=== PATIENT | female | born 1955 | race Caucasian/White ===

== ENCOUNTER 2022-10-06 10:51 | Outpatient (CLI) | payer MEDICARE, SELFPAY ==
--- NOTE | ~2022-10-06 | XR_ITS ---
XR chest 2V DATE: 10/06/2022 11:19 INDICATION: Left-sided chest pain TECHNIQUE: PA and lateral views COMPARISON: None FINDINGS: Normal heart size. No hilar or mediastinal enlargement. No pulmonary infiltrate or consolid ation, pleural effusion or pulmonary vascular congestion or pneumothorax. IMPRESSION: No active cardiopulmonary disease Reviewed, dictated and finalized at location B.
--- NOTE | 2022-10-06 11:26 | ECG_ITS ---
Measurements Intervals [place] Rate: 66 P: 33 MS: 125 QRS: -20 QRSD: 108 T: 56 QT: 401 QTc: 422 Interpretive Statements SINUS RHYTHM BASELINE ARTIFACT- III, AVL, AVF NORMAL ECG NO PREVIOUS ECG AVAILABLE FOR COMPARISON Electronically Signed On 10-06-2022 12:53:37 CDT by Fili De Leon D.O.
== END 2022-10-06 10:52 | disposition home or self-care (01) ==
PROVIDERS: PCP Family Medicine; Visit Provider Physician Assistant Medical
DX: R07.89 Other chest pain (principal)
CPT/HCPCS: 71046; 93005

== ENCOUNTER 2022-12-10 09:03 | Outpatient (CLI) | payer MEDICARE, SELFPAY ==
--- NOTE | 2022-12-10 11:00 | NEURO_ITS ---
Impression: # Complains of left upper extremity discomfort and numbness. # Bilateral sensory more than motor Carpal Tunnel Syndrome. # Bilateral ulnar neuropathy; left localizing around the elbow and right non- localizing. # Minimal changes on needle/EMG exam. Nerve Conduction Studies Anti Sensory Summary Table Stim Site NR Peak (ms) P-T Amp (?V) Site1 Site2 Delta-P (ms) Dist (cm) Twin (m/s) Left Median Anti Sensory (2-3nd Digit) Wrist 4.2 52.7 Wrist 2-3nd Digit 4.2 14.0 33 Wrist 4.0 66.0 Wrist 2-3nd Digit 4.2 14.0 33 Right Median Anti Sensory (2-3nd Digit) Wrist 4.0 48.7 Wrist 2-3nd Digit 4.0 14.0 35 Wrist 4.0 67.4 Wrist 2-3nd Digit 4.0 14.0 35 Left Radial Anti Sensory (Base 1st Digit) Wrist 2.8 11.4 Wrist Base 1st Digit 2.8 0.0 Right Radial Anti Sensory (Base 1st Digit) Wrist 2.1 7.5 Wrist Base 1st Digit 2.1 0.0 Left Ulnar Anti Sensory (5th Digit) Wrist 3.3 47.0 Wrist 5th Digit 3.3 14.0 42 Right Ulnar Anti Sensory (5th Digit) Wrist 2.4 42.5 Wrist 5th Digit 2.4 14.0 58 Motor Summary Table Stim Site NR Onset (ms) O-P Amp (mV) Site1 Site2 Delta-0 (ms) Dist (cm) Twin (m/s) Left Median Motor (Abd Poll Brev) Wrist 3.8 6.9 Elbow Wrist 5.0 28.0 56 Elbow 8.8 6.5 Right Median Motor (Abd Poll Brev) Wrist 3.8 8.2 Elbow Wrist 5.0 27.0 54 Elbow 8.8 7.7 Left Ulnar Motor (Abd Dig Minimi) Wrist 2.7 7.8 A Elbow Wrist 6.0 28.0 47 A Elbow 8.7 7.0 B Elbow Wrist 3.6 19.0 53 B Elbow 6.3 5.1 Right Ulnar Motor (Abd Dig Minimi) Wrist 2.7 6.0 A Elbow Wrist 6.0 28.0 47 A Elbow 8.7 5.2 B Elbow Wrist 4.2 18.0 43 B Elbow 6.9 5.4 F Wave Studies NR F-Lat (ms) L-R F-Lat (ms) Left Median (Mrkrs) (Abd Poll Brev) 29.36 0.00 Right Median (Mrkrs) (Abd Poll Brev) 29.36 0.00 Left Ulnar (Mrkrs) (Abd Dig Min) 30.70 0.68 Right Ulnar (Mrkrs) (Abd Dig Min) 30.02 0.68 EMG Side Muscle Nerve Root Ins Act Fibs Amp Dur Recrt Comment Right 1stDorInt Ulnar C8-T1 Nml Nml Nml >12ms Reduced Right Ext Indicis Radial (Post Int) C7-8 Nml Nml Nml Nml Nml Right Ext Digitorum Radial (Post Int) C7-8 Nml Nml Nml Nml Nml Right BrachioRad Radial C5-6 Nml Nml Nml Nml Nml Right PronatorTeres Median C6-7 Nml Nml Nml Nml Nml Right Abd Poll Brev Median C8-T1 Nml Nml Nml >12ms Reduced Left 1stDorInt Ulnar C8-T1 Nml Nml Nml Nml Nml Left Ext Indicis Radial (Post Int) C7-8 Nml Nml Nml Nml Nml Left Ext Digitorum Radial (Post Int) C7-8 Nml Nml Nml Nml Nml Left BrachioRad Radial C5-6 Nml Nml Nml Nml Nml Left PronatorTeres Median C6-7 Nml Nml Nml Nml Nml Left Abd Poll Brev Median C8-T1 Nml Nml Nml >12ms Reduced Right ABD Dig Min Ulnar C8-T1 Nml Nml Nml Nml Nml Left ABD Dig Min Ulnar C8-T1 Nml Nml Nml Nml Nml MTDD
== END 2022-12-10 09:04 | disposition home or self-care (01) ==
PROVIDERS: PCP Family Medicine; Visit Provider Family Medicine
DX: R20.0 Anesthesia of skin (principal); G56.03 Carpal tunnel syndrome, bilateral upper limbs; G56.23 Lesion of ulnar nerve, bilateral upper limbs
CPT/HCPCS: 95886; 95911

== ENCOUNTER 2025-06-22 12:16 | Outpatient (CLI) | payer MEDICARE, SELFPAY ==
[2025-06-22 14:04] LABS: Hematocrit 39.0 % (37.0-47.0); Hemoglobin 12.9 g/dL (12.0-15.0); Immature Granulocyte Percent A 0.2 % (0-0.5); Lymphocytes Absolute Auto 1.66 K/mm3 (0.9-3.2); Mean Corpuscular HGB Conc 33.1 g/dl (32-36); Mean Corpuscular Hemoglobin 30.2 pg (26-34); Mean Corpuscular Volume 91.3 fl (80-100); Nucleated Red Blood Cells Absolute Auto 0.000 K/mm3 (0.0-0.012); Nucleated Red Blood Cells Perc 0.0 % (0.0-0.2); Platelet Count Result 251 k/mm3 (150-375); Red Blood Count 4.27 M/mm3 (4.2-5.4); White Blood Count 5.6 K/mm3 (4.5-10.0)
[2025-06-22 15:07] LABS: Vitamin B12 303.0 pg/mL (239-931)
[2025-06-23 16:08] LABS: ANA by IFA Rfx Titer/Pattern Positive (.)
== END 2025-06-22 12:17 | disposition home or self-care (01) ==
PROVIDERS: PCP Family Medicine
DX: R43.8 Other disturbances of smell and taste (principal); R53.83 Other fatigue
CPT/HCPCS: 36415; 82607; 85025; 86038

== ENCOUNTER 2025-06-29 08:21 | Outpatient (CLI) | payer MEDICARE, SELFPAY ==
--- OUTSIDE RECORDS SUMMARY | 2025-06-29 08:32 | XMS_ITS | Encounter Summary ---
Author Organization [facility] Address [address] [place] [address] Care Team Providers Care Boat Canvas Maker Installer Name Role Phone Ivanna Wagner MD Primary Care Provider [phone] Encounter Details Date Type Department Care Team (Late st Contact Info) Description 01/02/[address] 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 Gender Identity Not on file Sexual Orientation Not on file documented as of this encounter Plan of Treatment Upcoming Encounters Date Type Department Care Team (Late st Contact Info) Description 09/19/2025 10:15 AM CDT Office Visit [facility] [place] [address] [place] [address] Vanessa Albright MD [address] [place] [address] documented as of this encounter Visit Diagnoses Not on filedocumented in this encounter Care Teams Boat Canvas Maker Installer Relationship Specialty Start Date End Date Ivanna Wagner MD [address] [place] [address] PCP - General Family Practice 11/17/23 documented as of this encounter
--- OUTSIDE RECORDS SUMMARY | 2025-06-29 08:32 | XMS_ITS | Encounter Summary ---
Author Organization [facility] Address 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 Gender Identity Not on file Sexual Orientation Not on file documented as of this encounter Plan of Treatment Upcoming Encounters Date Type Department Care Team (Late st Contact Info) Description 09/19/2025 10:15 AM CDT Office Visit [facility] Medical [place] [address] [place] [address] Vanessa Albright MD [address] [place] [address] documented as of this encounter Procedures Procedure Name Priority Date/Time Associated Diagnosis Comments T4 TOTAL Routine 09/09/2007 3:00 AM TAILINGS WORKER CBC WITH DIFFERENTIAL Routine 09/09/2007 3:00 AM TAILINGS WORKER TSH Routine 09/09/2007 3:00 AM TAILINGS WORKER IRON LEVEL Routine 09/09/2007 3:00 AM TAILINGS WORKER BASIC METABOLIC PANEL Routine 09/09/2007 3:00 AM TAILINGS WORKER documented in this encounter Results * TSH (09/09/2007 3:00 AM TAILINGS WORKER) Pathologist [facility] TSH 1.61 mIU/L [facility] Comment: REFERENCE RANGE: > OR = 20 YEARS: 0.40-4.50 RANGES FIRST TRIMESTER 0.20-4.70 SECOND TRIMESTER 0.30-4.10 THIRD TRIMESTER 0.40-2.70 Test Performed at: [place] [address] OBDULIO GRANT MD Narrative [facility] - 09/09/2007 3:00 AM TAILINGS WORKER Ordered by JULIANNE DAVIS Historical Provider CHEMISTRY ORDERABLES Final R esult Performing Organization Address City/[facility] Co de Phone Number [address] [address] * T4 TOTAL (09/09/2007 3:00 AM TAILINGS WORKER) [facility] T4 TOTAL 10.3 4.5 - 12.5 mcg/dL [facility] Comment: Test Performed at: [facility] [employer] [address] OBDULIO GRANT MD [facility] - 09/09/2007 3:00 AM TAILINGS WORKER Ordered by JULIANNE DAVIS Historical Provider CHEMISTRY ORDERABLES Final R esult Performing Organization Address City/[facility] Co de Phone Number [address] [address] * CBC WITH DIFFERENTIAL (09/09/2007 3:00 AM TAILINGS WORKER) Pathologist [facility] WBC 8.7 3.8 - 10.8 Thousand/ uL [facility] RBC 4.87 3.80 - 5.10 Million/u L [facility] HEMOGLOBIN 14.2 11.7 - 15.5 g/dL [facility] HEMATOCRIT 42.2 35.0 - 45.0 % [facility] MCV 86.5 80.0 - 100.0 fL [facility] MCH 29.1 27.0 - 33.0 pg [facility]. [facility] MCHC 33.7 32.0 - 36.0 g/dL [facility] RDW 14.6 11.0 - 15.0 % [facility] PLATELETS 296 140 - 400 Thousand/ uL [facility] NEUTROPHIL ABSOLUTE 6,168 1,500 - 7,800 cells/uL [facility] LYMPHOCYTE ABSOLUTE 1,688 850 - 3,900 cells/uL [facility] MONOCYTE ABSOLUTE 592 200 - 950 cells/uL [facility] EOSINOPHIL ABSOLUTE 235 15 - 500 cells/uL [facility]. [facility] BASOPHILS ABSOLUTE 17 0 - 200 cells/uL [facility] NEUTROPHIL 70.9 % [facility] LYMPHOCYTES 19.4 % [facility] MONOCYTE 6.8 % [facility] EOSINOPHILS 2.7 % [facility] BASOPHILS 0.2 % [facility] Comment: Test Performed at: [address] [address] OBDULIO GRANT MD Narrative [facility] - 09/09/2007 3:00 AM TAILINGS WORKER Ordered by JULIANNE DAVIS us Historical Provider HEMATOLOGY ORDERABLES Final Result [address] [address] * BASIC METABOLIC PANEL (09/09/2007 3:00 AM TAILINGS WORKER) GLUCOSE 84 65 - 99 mg/dL [facility] Comment:FASTING REFERENCE IN TERVAL BUN 13 7 - 25 mg/dL [facility] CREATININE 0.88 0.50 - 1.20 mg/dL [facility] GFR >60 > OR = 60 mL/min/1. 73m2 [facility] GFR, >60 > OR = 60 mL/min/1. 73m2 [facility] BUN/CREAT RATIO 15 6 - 22 (calc) [facility]. DIANE SODIUM 142 135 - 146 mmol/L [facility]. DIANE POTASSIUM 4.6 3.5 - 5.3 mmol/L [facility]. DIANE CHLORIDE 104 98 - 110 mmol/L [facility]. DIANE CO2 26 21 - 33 mmol/L [facility]. DIANE CALCIUM 10.1 8.6 - 10.2 mg/dL [facility] Comment: Test Performed at: [address] [address] OBDULIO GRANT MD Narrative [facility] - 09/09/2007 3:00 AM TAILINGS WORKER Ordered by JULIANNE DAVIS Historical Provider CHEMISTRY ORDERABLES Final R esult Performing Organization Address City/[facility]/ZIP Co de Phone Number [address] [address] * IRON (09/09/2007 3:00 AM TAILINGS WORKER) IRON 49 40 - 160 mcg/dL [facility] Comment: Test Performed at: [employer] [address] [address] OBDULIO GRANT MD Narrative [facility] - 09/09/2007 3:00 AM TAILINGS WORKER Ordered by JULIANNE DAVIS Historical Provider CHEMISTRY ORDERABLES Final R esult Performing Organization Address City/[facility]/ZIP Co de Phone Number [address] [address] documented in this encounter Visit Diagnoses Diagnosis Other screening mammogram documented in this encounter Care Teams Business Management Associate Relationship Specialty Start Date End Date Ivanna Wagner MD [address] [place] [address] PCP - General Family Practice 11/17/23 documented as of this encounter
--- OUTSIDE RECORDS SUMMARY | 2025-06-29 08:33 | XMS_ITS | Encounter Summary ---
Author Organization [facility] Address 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 Gender Identity Not on file Sexual Orientation Not on file documented as of this encounter Plan of Treatment Upcoming Encounters Date Type Department Care Team (Late st Contact Info) Description 09/19/2025 10:15 AM CDT Office Visit [facility] Medical [place] [address] [place] [address] Vanessa Albright MD [address] [place] [address] documented as of this encounter Visit Diagnoses Diagnosis Benign neoplasm of skin of trunk, except scrotum- Primary documented in this encounter Care Teams Volunteer Recruitment Coordinator Relationship Specialty Start Date End Date Ivanna Wagner MD [address] [place] [address] PCP - General Family Practice 11/17/23 documented as of this encounter
--- OUTSIDE RECORDS SUMMARY | 2025-06-29 08:33 | XMS_ITS | Encounter Summary ---
Author Organization [facility] Address 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 Gender Identity Not on file Sexual Orientation Not on file documented as of this encounter Plan of Treatment Upcoming Encounters Date Type Department Care Team (Late st Contact Info) Description 09/19/2025 10:15 AM CDT Office Visit [facility] Medical [place] [address] [place] [address] Vanessa Albright MD [address] [place] [address] documented as of this encounter Procedures Procedure Name Priority Date/Time Associated Diagnosis Comments XR MYELOGRAM LUMBAR Routine 05/26/2008 1 1:40 [address] SE[address]ESS HOSIERY KNITTER CT LUMBAR SPINE W CONTRAST Routine 05/26/2008 11:40 AM SEAMLESS HOSIERY KNITTER XR CONSULTATION Routine 05/26/2008 11:00 AM SEAMLESS HOSIERY KNITTER documented in this encounter Results * CT LUMBAR SPINE W CONTRAST (05/26/2008 11:40 AM SEAMLESS HOSIERY KNITTER) Anatomical Region Laterality Modality Spine Other 05/26/2008 11:4 0 AM SEAMLESS HOSIERY KNITTER Narrative 05/27/2008 9:31 AM SEAMLESS HOSIERY KNITTER [facility] [address] [place], [place] [address] Admit Date: 05/26/2008 GLORIA LINDSAY Sex: F Admit Prov: SUHAS MANUEL Date: 1955 Primary Care Prov: JULIANNE DAVIS CMRN: [id number] Room: [facility] SSN: [id number] IMAGING SERVICES Ordering Prov: N/A Accession Number: [id number] Interpretation CT lumbar spine with intrathecal contrast Lumbar myelogram 05/26/2008 Indication: Pain radiating to the left side Technique: Multiple CT axial images were acquired of the lumbar spine following administration of intrathecal contrast. Multiplanar reconstructions were performed. Fluoroscopic and conventional radiographs were also obtained. Findings: Radiographic images demonstrate good opacification of the thecal sac. The vertebral alignment is intact. Vertebral heights and disc spaces are maintained. The distal spinal cord has normal size. The conus of the spinal cord ends at L1-L2. Paraspinal soft tissues are normal. There is very minimal ventral indentation upon the thecal sac due to discs at L2-L3 through L4-L5. These do not exhibit any significant disc bulging. There is no focal disc herniation identified. No mass effect is identified upon the nerve roots. No canal stenosis is seen. Mild degree of facet arthropathy is present at L4-L5 and slightly greater at L5-S1. Impression: No evidence of nerve compromise or stenosis. Mild facet arthropathy at L4- L5 and L5-S1. . Dictated by: PRIYA RODRIGUEZ 05/27/2008 09:21 Electronically signed by: PRIYA RODRIGUEZ 05/27/2008 09:30 Procedure Note Priya Rodriguez - 05/27/2008 [facility] [address] [place], [place] [address] Admit Date: 05/26/2008 GLORIA LINDSAY Sex: F Admit Prov: SUHAS MANUEL Date:1955 Primary Care Prov: JULIANNE DAVIS CMRN: [id number] Room: [facility] SSN: [id number] IMAGING SERVICES Ordering Prov: N/A Interpretation CT lumbar spine with intrathecal contrast Lumbar myelogram 05/26/2008 Indication: Pain radiating to the left side Technique: Multiple CT axial images were acquired of the lumbarspine following administration of intrathecal contrast. Multiplanar reconstructions were performed. Fluoroscopic and conventionalradiographs were also obtained. Findings: Radiographic images demonstrate good opacification of the thecalsac. The vertebral alignment is intact. Vertebral heights and disc spacesare maintained. The distal spinal cord has normal size. The conus of thespinal cord ends at L1-L2. Paraspinal soft tissues are normal. There is very minimal ventral indentation upon the thecal sac due todiscs at L2-L3 through L4-L5. These do not exhibit any significant discbulging. There is no focal disc herniation identified. No mass effect isidentified upon the nerve roots. No canal stenosis is seen. Mild degree offacet arthropathy is present at L4-L5 and slightly greater at L5-S1. Impression: No evidence of nerve compromise or stenosis. Mild facet arthropathyat L4- L5 and L5-S1. . Dictated by: PRIYA RODRIGUEZ 05/27/2008 09:21 Electronically signed by: PRIYA RODRIGUEZ 05/27/2008 09:[address] ORDERABLES Final Result * XR MYELOGRAM LUMBAR (05/26/2008 11:40 AM SEAMLESS HOSIERY KNITTER) Anatomical Region Laterality Modality Spine Other 05/26/2008 11:4 0 AM SEAMLESS HOSIERY KNITTER Narrative 05/27/2008 9:30 AM SEAMLESS HOSIERY KNITTER [facility] [address] [place], [place] [address] Admit Date: 05/26/2008 GLORIA LINDSAY Sex: F Admit Prov: SUHAS MANUEL Date: 1955 Primary Care Prov: JULIANNE DAVIS CMRN: [id number] Room[facility]: [id number] IMAGING SERVICES Ordering Prov: N/A Accession Number: [id number] Interpretation CT lumbar spine with intrathecal contrast Lumbar myelogram 05/26/2008 Indication: Pain radiating to the left side Technique: Multiple CT axial images were acquired of the lumbar spine following administration of intrathecal contrast. Multiplanar reconstructions were performed. Fluoroscopic and conventional radiographs were also obtained. Findings: Radiographic images demonstrate good opacification of the thecal sac. The vertebral alignment is intact. Vertebral heights and disc spaces are maintained. The distal spinal cord has normal size. The conus of the spinal cord ends at L1-L2. Paraspinal soft tissues are normal. There is very minimal ventral indentation upon the thecal sac due to discs at L2-L3 through L4-L5. These do not exhibit any significant disc bulging. There is no focal disc herniation identified. No mass effect is identified upon the nerve roots. No canal stenosis is seen. Mild degree of facet arthropathy is present at L4-L5 and slightly greater at L5-S1. Impression: No evidence of nerve compromise or stenosis. Mild facet arthropathy at L4- L5 and L5-S1. . Dictated by: PRIYA RODRIGUEZ 05/27/2008 09:21 Electronically signed by: PRIYA RODRIGUEZ 05/27/2008 09:30 Procedure Note Provider, Historical - 05/27/2008 [facility] [address] [place], [place] [address] Admit Date: 05/26/2008 GLORIA LINDSAY Sex: F Admit Prov: SUHAS AMNUEL Date:1955 Primary Care Prov: JULIANNE DAVIS CMRN: [id number] Room: [facility]: [id number] IMAGING SERVICES Ordering Prov: N/A Interpretation CT lumbar spine with intrathecal contrast Lumbar myelogram 05/26/2008 Indication: Pain radiating to the left side Technique: Multiple CT axial images were acquired of the lumbarspine following administration of intrathecal contrast. Multiplanar reconstructions were performed. Fluoroscopic and conventionalradiographs were also obtained. Findings: Radiographic images demonstrate good opacification of the thecalsac. The vertebral alignment is intact. Vertebral heights and disc spacesare maintained. The distal spinal cord has normal size. The conus of thespinal cord ends at L1-L2. Paraspinal soft tissues are normal. There is very minimal ventral indentation upon the thecal sac due todiscs at L2-L3 through L4-L5. These do not exhibit any significant discbulging. There is no focal disc herniation identified. No mass effect isidentified upon the nerve roots. No canal stenosis is seen. Mild degree offacet arthropathy is present at L4-L5 and slightly greater at L5-S1. Impression: No evidence of nerve compromise or stenosis. Mild facet arthropathyat L4- L5 and L5-S1. . Dictated by: PRIYA RODRIGUEZ 05/27/2008 09:21 Electronically signed by: PRIYA RODRIGUEZ 05/27/2008 09:30 Suhas Manuel MD DIAGNOSTIC IMAGING ORDERABLES F inal Result * XR CONSULTATION (05/26/2008 11:00 AM SEAMLESS HOSIERY KNITTER) 05/26/2008 11:0 0 AM SEAMLESS HOSIERY KNITTER Narrative INTERFACE SYSTEM - 05/27/2008 9:32 AM SEAMLESS HOSIERY KNITTER [address] [address] Admit Date: 05/26/2008 GLORIA LINDSAY Sex: F Admit Prov: SUHAS MANUEL Date: 1955 Primary Care Prov: JULIANNE DAVIS CMRN: [id number] Room: [facility] SSN: [id number] IMAGING SERVICES Ordering Prov: N/A Accession Number: [id number] Interpretation Fluoroscopic lumbar puncture and lumbar myelogram 05/26/2008 Indication: Left radiculopathy Procedure: The risks and benefits of the procedure were discussed with the patient. Written informed consent was obtained. The patient was placed prone on the fluoroscopy table. The lower back was prepped and draped in sterile fashion. The L2-L3 level was marked using fluoroscopy. Local analgesia was achieved by infiltration of 1% lidocaine with 4.2% sodium bicarbonate. A 27 gauge 8.9 cm needle was advanced in a paraspinal approach into the thecal sac at the L2-L3 level. Roughly 10 cc of Omnipaque-180 contrast was injected. The needle was withdrawn without complication. Fluoroscopic radiographic images were obtained. The patient was sent for CT evaluation. Impression: Successful lumbar puncture with lumbar myelogram. . Dictated by: PRIYA RODRIGUEZ 05/27/2008 09:30 Electronically signed by: PRIYA RODRIGUEZ 05/27/2008 09:31 Procedure Note Priya Rodriguez - 05/27/[address] [address] Admit Date: 05/26/2008 GLORIA LINDSAY Sex: F Admit Prov: SUHAS MANUEL Date:1955 Primary Care Prov: JULIANNE DAVIS CMRN: [id number] Room: [facility] SSN: [id number] IMAGING SERVICES Ordering Prov: N/A Interpretation Fluoroscopic lumbar puncture and lumbar myelogram 05/26/2008 Indication: Left radiculopathy Procedure: The risks and benefits of the procedure were discussedwith the patient. Written informed consent was obtained. The patient wasplaced prone on the fluoroscopy table. The lower back was prepped and drapedin sterile fashion. The L2-L3 level was marked using fluoroscopy.Local analgesia was achieved by infiltration of 1% lidocaine with 4.2%sodium bicarbonate. A 27 gauge 8.9 cm needle was advanced in a paraspinalapproach into the thecal sac at the L2-L3 level. Roughly 10 cc ofOmnipaque-180 contrast was injected. The needle was withdrawn withoutcomplication. Fluoroscopic radiographic images were obtained. The patient was sentfor CT evaluation. Impression: Successful lumbar puncture with lumbar myelogram. . Dictated by: PRIYA RODRIGUEZ 05/27/2008 09:30 Electronically signed by: PRIYA RODRIGUEZ 05/27/2008 09:31 us Suhas Manuel MD DIAGNOSTIC IMAGING ORDERABLES F inal Result INTERFACE SYSTEM Refer to clinic/hospital department documented in this encounter Visit Diagnoses Not on filedocumented in this encounter Care Teams Sports Coordinator Relationship Specialty Start Date End Date Ivanna Wagner MD [address] [place] [address] PCP - General Family Practice 11/17/23 documented as of this encounter
--- OUTSIDE RECORDS SUMMARY | 2025-06-29 08:33 | XMS_ITS | Encounter Summary ---
Author Organization [facility] Address 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 [address] [place] [address] documented as of this encounter Visit Diagnoses Diagnosis Other screening mammogram- Primary documented in this encounter Care Teams Workforce Staffing Advisor Relationship Specialty Start Date End Date Ivanna Wagner MD [address] [place] [address] PCP - General Family Practice 11/17/23 documented as of this encounter
--- OUTSIDE RECORDS SUMMARY | 2025-06-29 08:33 | XMS_ITS | Encounter Summary ---
Author Organization [facility] Address [address] [place] [address] Care Team Providers Care Copper Roller Handler Printing Name Role Phone Ivanna Wagner MD Primary Care Provider [phone] Encounter Details Date Type Department Care Team (Latest Contact Info) Description 08/04/2008 Outpatient Historical HIS IMG-LAB [facility] [place] [address] [place] [address] Other Screening Mammogram Social History Tobacco Use Types Packs/Day Years Used Date Smoking Tobacco: Never Assessed Comments Unknown Sex and Gender Information Value Date Recorded Sex Assigned at Not on file Legal Sex Female 5:26 AM INSURANCE AGENCY SALES MANAGER Gender Identity Not on file Sexual Orientation Not on file documented as of this encounter Plan of Treatment Upcoming Encounters Date Type Department Care Team (Late st Contact Info) Description 09/19/2025 10:15 AM CDT Office Visit [facility] Medical [place] [address] [place] [address] Vanessa Albright MD [address] [facility] [address] [place] [address] documented as of this encounter Procedures Procedure Name Priority Date/Time Associated Diagnosis Comments MAMMO SCREEN BILAT W OR WO CAD Routine 08/04/2008 2:02 PM INSURANCE AGENCY SALES MANAGER documented in this encounter Results * MAMMO DIGITAL SCREEN BILAT (08/04/2008 2:02 PM INSURANCE AGENCY SALES MANAGER) Anatomical Region Laterality Modality Breast Bilateral Other 08/04/2008 2:02 PM INSURANCE AGENCY SALES MANAGER Narrative 08/10/2008 10:23 AM INSURANCE AGENCY SALES MANAGER [place] [address] [address] [place], [place] [address] Admit Date: 08/04/2008 GLORIA LINDSAY Sex: F Admit Prov: LEAH HARRIS Date: 1955 Primary Care Prov: JULIANNE DAVIS CMRN: [id number] [id number] Ordering Prov: LEAH HARRIS Accession Number: [id number] Interpretation BILATERAL SCREENING DIGITAL MAMMOGRAMS WITH COMPUTER ASSISTED DIAGNOSIS, 08/04/2008 Clinical History: Screening mammogram. Comparison mammograms dating back to 2005. Findings: The parenchyma is very dense bilaterally. This lowers the sensitivity of mammography in detecting disease. There is no mass, malignant calcification, lymphadenopathy, architectural distortion or other sign of malignancy. The images were reviewed using the CAD system. Impression: Dense mammary parenchyma. No mammographic evidence of malignancy. BI-RADS Category: 1, negative. Assessment BIRADS: 1-Negative Recommendation: Normal interval follow-up Dictated by: DORON WIGGINS Electronically signed by: DORON WIGGINS 08/10/2008 10:23 Transcribed: 08/10/2008 10:02 DKT Procedure Note Doron Wiggins MD - 08/10/2008 [address] [place], [place] [address] Admit Date: 08/04/2008 GLORIA LINDSAY Sex: F Admit Prov: SANDOVAL LEAH C Date:1955 Primary Care Prov: JULIANNE DAVIS CMRN: [id number] Room: [facility] SSN: [id number] IMAGING SERVICES Ordering Prov: LEAH HARRIS Interpretation BILATERAL SCREENING DIGITAL MAMMOGRAMS WITH COMPUTER ASSISTEDDIAGNOSIS, 08/04/2008 Clinical History: Screening mammogram. Comparison mammograms dating back to 2005. Findings: The parenchyma is very dense bilaterally. This lowers the sensitivity of mammography in detecting disease. There is no mass, malignant calcification, lymphadenopathy, architectural distortion orother sign of malignancy. The images were reviewed using the CAD system. Impression: Dense mammary parenchyma. No mammographic evidence of malignancy. BI-RADS Category: 1, negative. Assessment BIRADS: 1-Negative Recommendation: Normal interval follow-up Dictated by: DORON WIGGINS Electronically signed by: DORON WIGGINS 08/10/2008 10:23 Transcribed: 08/10/2008 10:02 DKT Leah Harris MD MAMMO ORDERABLES Final Result documented in this encounter Visit Diagnoses Diagnosis Other screening mammogram documented in this encounter Care Teams Copper Roller Handler Printing Relationship Specialty Start Date End Date Ivanna Wagner MD [address] [place] [address] PCP - General Family Practice 11/17/23 documented as of this encounter
--- OUTSIDE RECORDS SUMMARY | 2025-06-29 08:33 | XMS_ITS | Encounter Summary ---
Author Organization [facility] Address [address] [place] [address] Care Team Providers Care Tube Rebuilder Name Role Phone Ivanna Wagner MD Primary Care Provider [phone] Encounter Details Date Type Department Care Team (Latest Contact Info) Description 11/11/2001 Outpatient Historical HIS IMG-LAB [facility] [place] [address] [place] [address] SCREENING MAMM-MAILG NEOPL-OTHER (Primary Dx) Social History Tobacco Use Types Packs/Day Years Used Date Smoking Tobacco: Never Assessed Comments Unknown Sex and Gender Information Value Date Recorded Sex Assigned at Not on file Legal Sex Female 5:26 AM MANAGER PARK Gender Identity Not on file Sexual Orientation Not on file documented as of this encounter Plan of Treatment Upcoming Encounters Date Type Department Care Team (Late st Contact Info) Description 09/19/2025 10:15 AM CDT Office Visit [facility] Medical [place] [address] [facility] [address] [place] [address] Vanessa Albright MD [address] [facility] [address] [place] [address] documented as of this encounter Visit Diagnoses Diagnosis Other screening mammogram- Primary documented in this encounter Care Teams Tube Rebuilder Relationship Specialty Start Date End Date Ivanna Wagner MD [address] [place] [id number] PCP - General Family Practice 11/17/23 documented as of this encounter
--- OUTSIDE RECORDS SUMMARY | 2025-06-29 08:33 | XMS_ITS | Encounter Summary ---
Author Organization [facility] Address [address] [place] [address] Care Team Providers Care Medical Dosimetrist Name Role Phone Ivanna Wagner MD Primary Care Provider [phone] Encounter Details Date Type Department Care Team (Late st Contact Info) Description 06/02/2008 Outpatient Historical [facility] Suhas Manuel MD [address] [place] [address] Lumbago Social History Tobacco Use Types Packs/Day Years Used Date Smoking Tobacco: Never Assessed Comments Unknown Sex and Gender Information Value Date Recorded Sex Assigned at Not on file Legal Sex Female 5:26 AM ALUMNI RELATIONS MANAGER Gender Identity Not on file Sexual Orientation Not on file documented as of this encounter Plan of Treatment Upcoming Encounters Date Type Department Care Team (Late st Contact Info) Description 09/19/2025 10:15 AM CDT Office Visit [facility] Medical [place] [address] [place] [address] Vanessa Albright MD [address] [place] [address] [place] [address] documented as of this encounter Procedures Procedure Name Priority Date/Time Associated Diagnosis Comments CT ABDOMEN PELVIS W CONTRAST Routine 06/02/2008 9:28 AM ALUMNI RELATIONS MANAGER POC CREATININE Routine 06/02/2008 9:04 AM ALUMNI RELATIONS MANAGER documented in this encounter Results * CT ABDOMEN PELVIS W CONTRAST (06/02/2008 9:28 AM ALUMNI RELATIONS MANAGER) Anatomical Region Laterality Modality Abdomen Other 06/02/2008 9:28 AM ALUMNI RELATIONS MANAGER Narrative 06/02/2008 10:41 AM ALUMNI RELATIONS MANAGER [facility] [address] [place], [place] [address] Admit Date: 06/02/2008 GLORIA LINDSAY Sex: F Admit Prov: SUHAS MANUEL Date: 1955 Primary Care Prov: JULIANNE DAVIS CMRN: [id number] Room: [facility] SSN: [id number] IMAGING SERVICES Ordering Prov: N/A Accession Number: [id number] Interpretation EXAM: CT OF THE ABDOMEN AND PELVIS WITH INTRAVENOUS AND ORAL CONTRAST, 06/02/2008 History: Abdominal pain. Back pain. Left leg pain. Technique: CT of the abdomen and pelvis is performed with intravenous contrast. Oral contrast was also administered. Spiral imaging is performed from above the diaphragm to below the symphysis pubis. Images are reconstructed in the axial plane at 5 mm. Lung, liver, soft tissue and bone windows are reviewed. Findings: There are multiple hypodensities in the liver. One is seen in the left lobe of the liver and two are seen in the posterior/inferior right lobe of the liver. The largest is in the inferior right lobe of the liver. This lesion measures 4.1 cm in diameter in the transverse plane. The two largest lesions show peripheral nodular enhancement and are consistent with hemangiomas. The small lesion in the left lobe of the liver also suggests some peripheral enhancement consistent with hemangioma. The liver is otherwise unremarkable. The spleen, pancreas, and adrenal glands are unremarkable. There is a hyperdense lesion in the left kidney which measures 1.2 cm in diameter. This lesion, however, measures 48 Hounsfield units in density and cannot be described as a simple cyst on this examination. Further evaluation with MRI is recommended. There is a fat-containing mass in the posterior/inferior pelvis just inferior and lateral to the left sacrum. Fat-containing mass extends into the left buttock between the left gluteus muscles. This mass is entirely of fat density on the current examination, with no significant enhancement or nodularity, and is consistent with a benign lipoma. This lesion, however, produces some mild mass effect on pelvic structures and correlation with patient's symptoms and pain is recommended. This lesion may be producing some mild mass effect on the sciatic nerve as it extends to the sciatic notch and once again correlation with patient's symptoms is recommended. This lesion measures 5.2x2.2 cm on image 73. The uterus and adnexal regions are unremarkable. No bowel obstruction, fluid collection, free fluid, free air, or focal acute inflammatory process is seen. There is no additional finding. Impression: Lesion in the left kidney. This small lesion is hyperdense on this examination and cannot be described as a simple cyst based on this examination. Further evaluation of this lesion with MRI is recommended to better evaluate the characteristics of this lesion in the upper pole of the left kidney. Multiple lesions in the liver as described above. These lesions have initial enhancement characteristics consistent with hemangiomas. These lesions can be confirmed as hemangiomas when the lesion in the left kidney is evaluated with MRI. Large benign-appearing lipoma in the inferior/posterior left pelvis extending to between the gluteus muscles in the left buttock. This produces some mild mass effect on pelvic structures; correlation with symptoms is recommended as this lesion extends into the sciatic notch. No additional finding in the abdomen or pelvis. There is no bowel obstruction or acute inflammatory process. . Dictated by: BEN PYLE 06/02/2008 09:58 Electronically signed by: BEN PYLE 06/02/2008 10:40 Transcribed: 06/02/2008 10:18 DKT Procedure Note Ben Pyle - 06/02/2008 [facility] [address] [place], [place] [address] Admit Date: 06/02/2008 GLORIA LINDSAY Sex: F Admit Prov: SUHAS MANUEL Date:1955 Primary Care Prov: JULIANNE DAVIS CMRN: [id number] Room: [facility]: [id number] IMAGING SERVICES Ordering Prov: N/A Interpretation EXAM: CT OF THE ABDOMEN AND PELVIS WITH INTRAVENOUS AND ORALCONTRAST, 06/02/2008 History: Abdominal pain. Back pain. Left leg pain. Technique: CT of the abdomen and pelvis is performed withintravenous contrast. Oral contrast was also administered. Spiral imaging isperformed from above the diaphragm to below the symphysis pubis. Images are reconstructed in the axial plane at 5 mm. Lung, liver, soft tissueand bone windows are reviewed. Findings: There are multiple hypodensities in the liver. One is seenin the left lobe of the liver and two are seen in the posterior/inferiorright lobe of the liver. The largest is in the inferior right lobe of theliver. This lesion measures 4.1 cm in diameter in the transverse plane. Thetwo largest lesions show peripheral nodular enhancement and areconsistent with hemangiomas. The small lesion in the left lobe of the liver alsosuggests some peripheral enhancement consistent with hemangioma. The liveris otherwise unremarkable. The spleen, pancreas, and adrenal glandsare unremarkable. There is a hyperdense lesion in the left kidney which measures 1.2 cm in diameter. This lesion, however, measures 48Hounsfield units in density and cannot be described as a simple cyst on this examination. Further evaluation with MRI is recommended. There is a fat-containing mass in the posterior/inferior pelvisjust inferior and lateral to the left sacrum. Fat-containing mass extendsinto the left buttock between the left gluteus muscles. This mass isentirely of fat density on the current examination, with no significantenhancement or nodularity, and is consistent with a benign lipoma. This lesion,however, produces some mild mass effect on pelvic structures and correlationwith patient's symptoms and pain is recommended. This lesion may beproducing some mild mass effect on the sciatic nerve as it extends to thesciatic notch and once again correlation with patient's symptoms isrecommended. This lesion measures 5.2x2.2 cm on image 73. The uterus and adnexal regions are unremarkable. No bowelobstruction, fluid collection, free fluid, free air, or focal acute inflammatoryprocess is seen. There is no additional finding. Impression: Lesion in the left kidney. This small lesion is hyperdense on this examination and cannot be described as a simple cyst based on this examination. Further evaluation of this lesion with MRI isrecommended to better evaluate the characteristics of this lesion in the upper poleof the left kidney. Multiple lesions in the liver as described above. These lesionshave initial enhancement characteristics consistent with hemangiomas.These lesions can be confirmed as hemangiomas when the lesion in the leftkidney is evaluated with MRI. Large benign-appearing lipoma in the inferior/posterior left pelvis extending to between the gluteus muscles in the left buttock. Thisproduces some mild mass effect on pelvic structures; correlation with symptomsis recommended as this lesion extends into the sciatic notch. No additional finding in the abdomen or pelvis. There is no bowel obstruction or acute inflammatory process. . Dictated by: BEN PYLE 06/02/2008 09:58 Electronically signed by: BEN PYLE 06/02/2008 10:40 Transcribed: 06/02/2008 10:18 DKT us Suhas Manuel MD CT ORDERABLES Final Result * POC CREATININE (06/02/2008 9:04 AM ALUMNI RELATIONS MANAGER) CREATININE POC 0.7 0.6 - 1.3 mg/dL [facility] GFR >60 >=60 mL/min/1.7 sq meter [facility] GFR, >60 >=60 mL/min/1.7 sq meter [facility] Capillary blood specimen (specimen) 06/02/2008 9:04 AM ALUMNI RELATIONS MANAGER 06/02/2008 9:04 AM ALUMNI RELATIONS MANAGER us Suhas Manuel MD POINT OF CARE TESTING Edited INTERFACE SYSTEM Refer to clinic/hospital department [facility] CLIA# [id number] [address] [facility] [address] [place] [address] documented in this encounter Visit Diagnoses Diagnosis Lumbago documented in this encounter Care Teams Medical Dosimetrist Relationship Specialty Start Date End Date Ivanna Wagner MD [address] [place] [address] PCP - General Family Practice 11/17/23 documented as of this encounter
--- OUTSIDE RECORDS SUMMARY | 2025-06-29 08:33 | XMS_ITS | Encounter Summary ---
Author Organization [facility] Address [address] [place] [address] Care Team Providers Care Clay Dry Press Operator Name Role Phone Ivanna Wagner MD Primary Care Provider [phone] Encounter Details Date Type Department Care Team (Late st Contact Info) Description 12/13/2003 Outpatient Historical [facility] Internal Medicine [address] [phone] Ady Wesley MD [address] [facility] [address] [place] [address] Social History Tobacco Use Types Packs/Day Years Used Date Smoking Tobacco: Never Assessed Comments Unknown Sex and Gender Information Value Date Recorded Sex Assigned at Not on file Legal Sex Female 5:26 AM LOCOMOTIVE CRANE OPERATOR HELPER Gender Identity Not on file Sexual Orientation Not on file documented as of this encounter Plan of Treatment Upcoming Encounters Date Type Department Care Team (Late st Contact Info) Description 09/19/2025 10:15 AM CDT Office Visit [facility] Medical [place] [address] [place] [address] [place] [address] Vanessa Albright MD [address] [place] [address] [place] [address] documented as of this encounter Visit Diagnoses Not on filedocumented in this encounter Care Teams Clay Dry Press Operator Relationship Specialty Start Date End Date Ivanna Wagner MD [address] [place] [address] PCP - General Family Practice 11/17/23 documented as of this encounter
--- OUTSIDE RECORDS SUMMARY | 2025-06-29 08:33 | XMS_ITS | Encounter Summary ---
Author Organization [facility] Address [address] [place] [address] Care Team Providers Care Security Analyst Name Role Phone Ivanna Wagner MD Primary Care Provider [phone] Encounter Details Date Type Department Care Team (Latest Contact Info) Description 07/03/2006 Outpatient Historical HIS IMG-LAB [facility] [place] [address] [place] [address] Other Screening Mammogram (Primary Dx) Social History Tobacco Use Types Packs/Day Years Used Date Smoking Tobacco: Never Assessed Comments Unknown Sex and Gender Information Value Date Recorded Sex Assigned at Not on file Legal Sex Female 5:26 AM BRAKE REPAIRER Gender Identity Not on file Sexual Orientation Not on file documented as of this encounter Plan of Treatment Upcoming Encounters Date Type Department Care Team (Late st Contact Info) Description 09/19/2025 10:15 AM CDT Office Visit [facility] Medical [place] [address] [place] [address] Vanessa Albright MD [address] [place] [address] documented as of this encounter Visit Diagnoses Diagnosis Other screening mammogram- Primary documented in this encounter Care Teams Security Analyst Relationship Specialty Start Date End Date Ivanna Wagner MD [address] [place] [address] PCP - General Family Practice 11/17/23 documented as of this encounter
--- OUTSIDE RECORDS SUMMARY | 2025-06-29 08:33 | XMS_ITS | Encounter Summary ---
Author Organization [facility] Address [address] [place] [address] Care Team Providers Care Accounts Supervisor Name Role Phone Ivanna Wagner MD Primary Care Provider [phone] Encounter Details Date Type Department Care Team (Late st Contact Info) Description 04/13/1998 Outpatient Historical [facility] Internal Medicine [address] [phone] Ady Wesley MD 141 [facility] [address] [place] [address] Social History Tobacco Use Types Packs/Day Years Used Date Smoking Tobacco: Never Assessed Comments Unknown Sex and Gender Information Value Date Recorded Sex Assigned at Not on file Legal Sex Female 5:26 AM TRAIN CREW MEMBER Gender Identity Not on file Sexual Orientation Not on file documented as of this encounter Plan of Treatment Upcoming Encounters Date Type Department Care Team (Late st Contact Info) Description 09/19/2025 10:15 AM CDT Office Visit [facility] Medical [place] [address] [place] [address] [place] [address] Vanessa Albright MD [address] [place] [address] [place] [address] documented as of this encounter Visit Diagnoses Not on filedocumented in this encounter Care Teams Accounts Supervisor Relationship Specialty Start Date End Date Ivanna Wagner MD [address] [place] [address] PCP - General Family Practice 11/17/23 documented as of this encounter
--- OUTSIDE RECORDS SUMMARY | 2025-06-29 08:33 | XMS_ITS | Encounter Summary ---
Author Organization [facility] Address [address] [place] [address] Care Team Providers Care Thermodynamics Professor Name Role Phone Ivanna Wagner MD Primary Care Provider [phone] Encounter Details Date Type Department Care Team (Late st Contact Info) Description 02/17/2001 Outpatient Historical [facility] Internal Medicine [address] [phone] Ady Wesley MD 141 [facility] [address] [place] [address] Social History Tobacco Use Types Packs/Day Years Used Date Smoking Tobacco: Never Assessed Comments Unknown Sex and Gender Information Value Date Recorded Sex Assigned at Not on file Legal Sex Female 5:26 AM SANDWICH WRAPPER Gender Identity Not on file Sexual Orientation Not on file documented as of this encounter Plan of Treatment Upcoming Encounters Date Type Department Care Team (Late st Contact Info) Description 09/19/2025 10:15 AM CDT Office Visit [facility] Medical [place] [address] [place] [address] [place] [address] Vanessa Albright MD [address] [place] [address] [place] [address] documented as of this encounter Visit Diagnoses Not on filedocumented in this encounter Care Teams Thermodynamics Professor Relationship Specialty Start Date End Date Ivanna Wagner MD [address] [place] [address] PCP - General Family Practice 11/17/23 documented as of this encounter
--- OUTSIDE RECORDS SUMMARY | 2025-06-29 08:33 | XMS_ITS | Encounter Summary ---
Author Organization [facility] Address [address] [place] [address] Care Team Providers Care Drug Coordinator Name Role Phone Ivanna Wagner MD Primary Care Provider [phone] Encounter Details Date Type Department Care Team (Late st Contact Info) Description 02/03/2001 Outpatient Historical [facility] ([facility]) Internal Medicine [address] [phone] Ady Wesley MD [address] [facility] [address] [place] [address] Social History Tobacco Use Types Packs/Day Years Used Date Smoking Tobacco: Never Assessed Comments Unknown Sex and Gender Information Value Date Recorded Sex Assigned at Not on file Legal Sex Female 5:26 AM CASH CONTROL SPECIALIST Gender Identity Not on file Sexual Orientation Not on file documented as of this encounter Plan of Treatment Upcoming Encounters Date Type Department Care Team (Late st Contact Info) Description 09/19/2025 10:15 AM CDT Office Visit [facility] Medical [place] [address] [place] [id number] [place] [address] Vanessa Albright MD [address] [place] [id number] [place] [address] documented as of this encounter Visit Diagnoses Not on filedocumented in this encounter Care Teams Drug Coordinator Relationship Specialty Start Date End Date Ivanna Wagner MD [address] [place] [address] PCP - General Family Practice 11/17/23 documented as of this encounter
--- OUTSIDE RECORDS SUMMARY | 2025-06-29 08:33 | XMS_ITS | Encounter Summary ---
Author Organization [facility] Address 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 Gender Identity Not on file Sexual Orientation Not on file documented as of this encounter Plan of Treatment Upcoming Encounters Date Type Department Care Team (Late Contact Info) Description 09/19/2025 10:15 AM CDT Office Visit [facility] [place] [facility] [address] [address] Vanessa Albright MD [address] [address] documented as of this encounter Procedures Procedure Name Priority Date/Time Associated Diagnosis Comments XR FEMUR 2 VW LEFT Stat 02/28/2008 7: 33 PM CDT XR LUMBAR SPINE 2 OR 3 VW Stat 02/28/2008 7:33 PM CDT documented in this encounter Results * XR LUMBAR SPINE 2 OR 3 VW (02/28/2008 7:33 PM CDT) Anatomical Region Laterality Modality Spine Other 02/28/2008 7:33 PM CDT Narrative 02/29/2008 12:21 AM CDT [place] [address] [place], [place] [address] Admit Date: 02/28/2008 KATERINA LINDSAY Sex: F Admit Prov: ER, AUTHORIZED P Date: 1955 Primary Care Prov: JULIANNE DAVIS CMRN: [id number] [id number] [facility] Ordering Prov: N/A Accession Number: [id number] Interpretation LUMBAR SPINE, AP, LATERAL 02/28/2008 History: Back pain. Findings: No fracture, subluxation or abnormal bone production or destruction is identified. The vertebral bodies and intervertebral disc spaces are of normal height. Impression: Normal. . Dictated by: DELVIS DAVILA 02/28/2008 19:52 Electronically signed by: DELVIS DAVILA 02/29/2008 00:20 Transcribed: 02/28/2008 19:54 SJ Procedure Note Delvis Davila MD - 02/29/2008 [address] [address] [place], [place] [address] Admit Date: 02/28/2008 KATERINA LINDSAY Sex: F Admit Prov: ER, AUTHORIZED P Date:1955 Primary Care Prov: JULIANNE DAVIS CMRN: [id number] [facility] N: [id number] IMAGING SERVICES Ordering Prov: N/A Interpretation LUMBAR SPINE, AP, LATERAL 02/28/2008 History: Back pain. Findings: No fracture, subluxation or abnormal bone production or destruction is identified. The vertebral bodies and intervertebraldisc spaces are of normal height. Impression: Normal. . Dictated by: DELVIS DAVILA 02/28/2008 19:52 Electronically signed by: DELVIS DAVILA 02/29/2008 00:20 Transcribed: 02/28/2008 19:54 SJ us Authorized P Er DIAGNOSTIC IMAGING ORDERABLES Fi nal Result * XR FEMUR 2 VW LEFT (02/28/2008 7:33 PM CDT) Anatomical Region Laterality Modality Lower Extremity Other 02/28/2008 7:33 PM CDT Narrative 02/29/2008 12:21 AM CDT [address] [address] Admit Date: 02/28/2008 KATERINA LINDSAY Sex: F Admit Prov: ER, AUTHORIZED P Date: 1955 Primary Care Prov: JULIANNE DAVIS CMRN: [id number] [facility] N: [id number] IMAGING SERVICES Ordering Prov: N/A Accession Number: [id number] Interpretation LEFT FEMUR, 2 VIEWS, 02/28/2008 History: Pain. Findings: The osseous, joint and soft tissue structures are normal. Impression: Normal. . Dictated by: DELVIS DAVILA 02/28/2008 19:52 Electronically signed by: DELVIS DAVILA 02/29/2008 00:20 Transcribed: 02/28/2008 19:53 SJ Procedure Note Delvis Davila MD - 02/29/[address] [address] Admit Date: 02/28/2008 KATERNIA LINDSAY Sex: F Admit Prov: ER, AUTHORIZED P Date:1955 Primary Care Prov: JULIANNE DAVIS CMRN: [id number] Room: ER-A SSN: [id number] IMAGING SERVICES Ordering Prov: N/A Interpretation LEFT FEMUR, 2 VIEWS, 02/28/2008 History: Pain. Findings: The osseous, joint and soft tissue structures are normal. Impression: Normal. . Dictated by: DELVIS DAVILA 02/28/2008 19:52 Electronically signed by: DELVIS DAVILA 02/29/2008 00:20 Transcribed: 02/28/2008 19:53 SJ us Authorized P Er DIAGNOSTIC IMAGING ORDERABLES Fi nal Result documented in this encounter Visit Diagnoses Not on filedocumented in this encounter Care Teams Astronomy Professor Relationship Specialty Start Date End Date Ivanna Wagner MD [address] [place] [address] PCP - General Family Practice 11/17/23 documented as of this encounter
--- OUTSIDE RECORDS SUMMARY | 2025-06-29 08:33 | XMS_ITS | Encounter Summary ---
Author Organization [facility] Address 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 Gender Identity Not on file Sexual Orientation Not on file documented as of this encounter Plan of Treatment Upcoming Encounters Date Type Department Care Team (Late st Contact Info) Description 09/19/2025 10:15 AM CDT Office Visit [facility] Medical [place] [address] [facility] [address] [place] [address] Vanessa Albright MD [address] [facility] [address] [place] [address] documented as of this encounter Visit Diagnoses Diagnosis Other screening mammogram- Primary documented in this encounter Care Teams Polysomnograph Tech Relationship Specialty Start Date End Date Ivanna Wagner MD [address] [place] [id number] PCP - General Family Practice 11/17/23 documented as of this encounter
--- OUTSIDE RECORDS SUMMARY | 2025-06-29 08:33 | XMS_ITS | Encounter Summary ---
Author Organization [facility] Address [address] [place] [address] Care Team Providers Care Catalyst Concentration Operator Name Role Phone Ivanna Wagner MD Primary Care Provider [phone] Encounter Details Date Type Department Care Team (Late st Contact Info) Description 01/03/1998 Outpatient Historical [facility] Internal Medicine [address] [phone] Ady Wesley MD 141 [facility] [address] [place] [address] Social History Tobacco Use Types Packs/Day Years Used Date Smoking Tobacco: Never Assessed Comments Unknown Sex and Gender Information Value Date Recorded Sex Assigned at Not on file 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 Gender Identity Not on file Sexual Orientation Not on file documented as of this encounter Plan of Treatment Upcoming Encounters Date Type Department Care Team (Late st Contact Info) Description 09/19/2025 10:15 AM CDT Office Visit [facility] Medical [place] [address] [place] [address] [place] [address] Vanessa Albright MD [address] [place] [address] [place] [address] documented as of this encounter Visit Diagnoses Not on filedocumented in this encounter Care Teams Catalyst Concentration Operator Relationship Specialty Start Date End Date Ivanna Wagner MD [address] [place] [address] PCP - General Family Practice 11/17/23 documented as of this encounter
--- OUTSIDE RECORDS SUMMARY | 2025-06-29 08:33 | XMS_ITS | Encounter Summary ---
Author Organization [facility] Address [address] [place] [address] Care Team Providers Care Alternative Medicine Practitioner Name Role Phone Ivanna Wagner MD Primary Care Provider [phone] Encounter Details Date Type Department Care Team (Latest Contact Info) Description 11/09/2000 Outpatient Historical [facility] IM[facility] [place] [address] [place] [address] Other screening mammogram (Primary Dx) Social History Tobacco Use Types Packs/Day Years Used Date Smoking Tobacco: Never Assessed Comments Unknown Sex and Gender Information Value Date Recorded Sex Assigned at Not on file Legal Sex Female 5:26 AM PEDIATRICIAN ACTIVE PRACTICE Gender Identity Not on file Sexual Orientation Not on file documented as of this encounter Plan of Treatment Upcoming Encounters Date Type Department Care Team (Late st Contact Info) Description 09/19/2025 10:15 AM CDT Office Visit [facility] Medical [place] [address] [place] [address] [place] [address] Vanessa Albright MD [address] [place] [address] [place] [address] documented as of this encounter Visit Diagnoses Diagnosis Other screening mammogram- Primary documented in this encounter Care Teams Alternative Medicine Practitioner Relationship Specialty Start Date End Date Ivanna Wagner MD [address] [place] [address] PCP - General Family Practice 11/17/23 documented as of this encounter
--- OUTSIDE RECORDS SUMMARY | 2025-06-29 08:33 | XMS_ITS | Clinical Summary ---
Author Organization [facility] Address [address] [place] [address] Care Team Providers Care Flat Cutter Name Role Phone Ivanna Wagner MD Primary Care Provider [phone] Allergies No known active allergies Medications Cholecalciferol, Vitamin D3, 3,000 unit Tablet Take by mouth. Active Active Problems Patient Care Coordination No te Formatting of this note migh t be different from the original. 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 Encounters Date Type Department Care Team Description 05/16/2025 External Device Data [facility] ABSTRACTION Provider, Abstract 05/16/2025 External Device Data [facility] ABSTRACTION Provider, Abstract 05/16/2025 External Device Data [facility] ABSTRACTION Provider, Abstract 05/10/2025 External Device Data [facility] ABSTRACTION Provider, Abstract 05/10/2025 External Device Data [facility] ABSTRACTION Provider, Abstract 05/03/2025 External Device Data [facility] ABSTRACTION Provider, Abstract 05/02/2025 External Device Data [facility] ABSTRACTION Provider, Abstract from Last 3 Months Immunizations Immunization Administration Dates Next Due (ADACEL/BOOSTRIX)(10 YR UP) TDAP VACCINE, 0.5ML, IM 11/04/2021,04/05/2012 (PFIZER)(12 YR UP) COVID-19 VACCINE - EMERGENCY USE AUTHORIZATION, MRNA, [id number](PF) 30 MCG/0.3 ML IM SUSP 11/15/2020,10/25/2020 (PNEUMOVAX 23)(50 YRS UP) PN EUMOCOCCAL POLYSACCHARIDE (PPV23) 0.5 ML, IM 11/04/2021 (SHINGRIX)(50 YRS UP) ZOSTER VACCINE RECOMBINANT, 0.5 ML, IM 04/26/2020,01/30/2020 04/02/2020 INFLUENZA VACCINE QUADRIVALE NT 6 MOS UP PF IM 04/26/2020 Influenza Seasonal Unspecifi ed Formulation IM 04/12/2021,05/13/2017,05/13/2013 Zoster Vaccine Live SQ 01/04/2016 Family History Medical History Relation Name Comments Healthy Brother 1 Healthy Brother 2 Cancer Brother 3 Healthy Brother 3 Healthy Brother 4 Healthy Brother 5 Other Father Non Hodginkins Lymphoma Cancer Maternal Grandfather Rectal Cancer Healthy Mother Healthy Son 1 Healthy Son 2 Breast Cancer Neg Hx Colon Cancer Neg Hx Relation Name Status Comments Brother 1 Alive Brother 2 Alive Brother 3 Alive Brother 4 Alive Brother 5 Alive Father Maternal Grandfather Maternal Grandmother Mother Alive Paternal Grandfather Paternal Grandmother Son 1 Alive Son 2 Alive Social History Tobacco Use Types Packs/Day Years Used Date Smoking Tobacco: Never Smokeless Tobacco: Never Alcohol Use Standard Drinks/Week Comments Yes 0 (1 standard drink = 0.6 oz pur e alcohol) Social Alcohol intake Financial Resource Strain Answer Date R ecorded How hard is it for you to pa y for the very basics like food, housing, medical care, and heating? Not hard at all 11/04/2021 Food Insecurity Answer Date Recorded In the past 12 months, have you worried that your food would run out before you had money to buy more? Never true 11/04/2021 In the past 12 months, did y ou run out of food and didn't have money to buy more? Never true 11/04/2021 Transportation Needs Answer Date Record ed In the past 12 months, has l ack of transportation kept you from medical appointments or from getting medications? 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 Gender Identity Not on file Sexual Orientation Not on file Occupation Industry Job Start Date Job End Date Not on file Not on file Not on file Not on file Last Filed Vital Signs Vital Sign Reading Time Taken Comments Blood Pressure 118/66 09/15/2023 10:16 AM GREASER HELPER Pulse 76 11/04/2021 8:57 AM CDT Temperature 36.1 C (97 F) 11/04/2021 8:57 AM CDT Respiratory Rate 12 11/04/2021 8:57 AM CDT Oxygen Saturation 99% 10/03/2016 1:00 PM CDT Inhaled Oxygen Concentration - - Weight 57.2 kg (126 lb) 09/15/2023 10:16 AM GREASER HELPER Height 170.2 cm (5' 7) 09/15/2023 10:16 AM GREASER HELPER Body Mass Index 19.73 09/15/2023 10:16 AM GREASER HELPER Plan of Treatment Upcoming Encounters Date Type Department Care Team (Late st Contact Info) Description 09/19/2025 10:15 AM CDT Office Visit [facility] [place] [address] [address] Vanesas Albright MD [address] [id number] [place] [address] Health Maintenance Due Date Last Done Comments FIT-DNA Q 3 years 2000 FIT/FOBT Q 1 year 2000 Flex Sig/CT Colonography Q 5 years 2000 PNEUMOCOCCAL VACCINE 50+ YEA RS (2 of 2 - PCV) 11/04/2022 11/04/2021 INFLUENZA VACCINE (#1) 2025 2, 04/18/2021, 04/12/2021, Additional history exists COVID-19 Vaccine (3 - 2024-2 6 season) 2025 11/15/2020, 10/25/2020 OSTEOPOROSIS SCREENING 11/01/2025 11/01/2020 BREAST CANCER SCREENING 12/09/2025 12/10/19 25, 11/17/2023, 06/17/2022, Additional history exists COLORECTAL SCREENING 10/03/2026 10/03/2016, 10/03/2016, 07/13/2006 Colorectal Cancer Screening 10/03/2026 RSV VACCINE (60+ or ) (1 - 1-dose 75+ series) 2030 DTAP/TDAP/TD VACCINES (3 - T d or Tdap) 11/05/2031 11/04/2021, 04/05/2012 ZOSTER VACCINE Completed 04/26/2020, 01/11, 01/04/2016 Procedures Procedure Name Priority Date/Time Associated Diagnosis Comments MAMMO 3D LARISA SCREEN BILAT W OR WO CAD Routine 12/09/2024 2:43 PM CDT Visit for screening mammogram XR DEXA BONE DENSITY AXIAL 1 OR MORE SITES Routine 11/01/2020 9:59 AM CDT Screening for osteoporosis from Last 3 Months or Most Recently Relevant to Health Maintenance Results * MAMMO 3D LARISA SCREEN BILAT W OR WO CAD (12/09/2024 2:43 PM CDT) Anatomical Region Laterality Modality Breast Bilateral Mammography 12/09/2024 2:44 PM CDT Impressions 12/09/2024 2:48 PM CDT IMPRESSION: Negative. RECOMMENDATIONS: Bilateral annual screening mammogram RIGHT BREAST FINAL ASSESSMENT: BI-RADS CATEGORY 1 - Negative LEFT BREAST FINAL ASSESSMENT: BI-RADS CATEGORY 1 - Negative DICTATION LOCATION: [facility] 12/09/2024 2:48 PM CDT BILATERAL SCREENING DIGITAL MAMMOGRAMS WITH COMPUTER ASSISTED DIAGNOSIS WITH TOMOGRAPHY DATE: 12/09/2024 2:43 PM HISTORY: Routine screening mammogram. . COMPARISON: 11/17/2023 and 06/17/2022. TECHNIQUE: A bilateral screening mammogram was performed. Low-dose full-field digital breast tomosynthesis examination was performed with 2D and 3D acquisitions. Examination is read in conjunction with computer aided detection. BREAST COMPOSITION: Heterogeneously dense, which limits the sensitivity of mammography. FINDINGS: No new masses, suspicious calcifications or areas of asymmetry or distortion are identified. The images were reviewed using the CAD system. us Vanessa Albright MD MAMMO ORDERABLES Final Re sult * XR DEXA BONE DENSITY AXIAL 1 OR MORE SITES (11/01/2020 9:59 AM CDT) Anatomical Region Laterality Modality Digital Radiogra phy 11/01/2020 9:59 AM CDT Narrative 11/01/2020 11:59 AM CDT XR DEXA BONE DENSITY AXIAL 1 OR MORE SITES DATE: 11/01/2020 9:59 AM HISTORY: 65 year old Female with post menopausal symptoms. PROCEDURE: Planar images of the lumbar spine and hip(s) using a [employer] DEXA scanner for bone mineral density determination (BMD). FINDINGS: Lumbar Spine (L1-L4) 1.352 gm/cm2, T-score: +1.3 Left femoral neck 1.054 gm/cm2, T-score: +0.1 Right femoral neck 0.966 gm/cm2, T-score: -0.5 Comments: None IMPRESSION Normal bone mineral density. DEFINITIONS: Normal: T-score above -1.0 Osteopenia T-score less than -1.0 and above -2.5 Osteoporosis: T-score < -2.5 FRAX FRACTURE RISK ASSESSMENT: Risk factors: None. 10 Year Probability Of Fracture -Major Osteoporotic: 6.0% -Hip: 0.3% -Comparison population: [place], A major osteoporotic fracture is defined as a fracture of the spine, forearm, hip or shoulder. FOLLOW-UP RECOMMENDATIONS: Patients without high risk factors for osteoporosis: T-score -1.0 to -1.5 - Consider repeat BMD in 5-10 years T-score -1.5 to -2.0 - Consider repeat BMD in 3-5 years T-score -2.0 to - 2.5 - Consider repeat BMD every 2 years Patients on treatment for osteoporosis: 1-2 years after initiation of treatment and every 2 [address] Ramu Retana DO DICTATION LOCATION: Location 1 - [facility] Procedure Note Ramu Retana DO - 11/01/2020 XR DEXA BONE DENSITY AXIAL 1 OR MORE SITES DATE: 11/01/2020 9:59 AM HISTORY: 65 year old Female with post menopausal symptoms. PROCEDURE: Planar images of the lumbar spine and hip(s) using a [employer] DEXA scanner for bone mineral density determination (BMD). FINDINGS: Lumbar Spine (L1-L4) 1.352 gm/cm2, T-score: +1.3 Left femoral neck 1.054 gm/cm2, T-score: +0.1 Right femoral neck 0.966 gm/cm2, T-score: -0.5 Comments: None IMPRESSION Normal bone mineral density. DEFINITIONS: Normal: T-score above -1.0 Osteopenia T-score less than -1.0 and above -2.5 Osteoporosis: T-score < -2.5 FRAX FRACTURE RISK ASSESSMENT: Risk factors: None. 10 Year Probability Of Fracture -Major Osteoporotic: 6.0% -Hip: 0.3% -Comparison population: [place], A major osteoporotic fracture is defined as a fracture of the spine, forearm, hip or shoulder. FOLLOW-UP RECOMMENDATIONS: Patients without high risk factors for osteoporosis: T-score -1.0 to -1.5 - Consider repeat BMD in 5-10 years T-score -1.5 to -2.0 - Consider repeat BMD in 3-5 years T-score -2.0 to - 2.5 - Consider repeat BMD every 2 years Patients on treatment for osteoporosis: 1-2 years after initiation of treatment and every 2 years thereafter [address] Ramu Retana, DICTATION LOCATION: Location 1 - [facility] Ady Wesley MD DIAGNOSTIC IMAGING ORDERABLES F inal Result from Last 3 Months or Most Recently Relevant to Health Maintenance Insurance [facility] [id number] [employer] Advance Directives For more information, please contact: [phone] * Full Code (Latest Code Status on File) Date Activated Date Inactivated Comments 10/03/2016 11:51 AM 10/03/2016 3:33 PM Care Teams Flat Cutter Relationship Specialty Start Date End Date Ivanna Wagner MD [address] [place] [phone] PCP - General Family Practice 11/17/23
--- OUTSIDE RECORDS SUMMARY | 2025-06-29 08:33 | XMS_ITS | Encounter Summary ---
Author Organization [facility] Address 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 [place] [address] [place] [id number] [place] [address] Vanessa Albright MD [address] [facility] [address] [place] [address] documented as of this encounter Procedures Procedure Name Priority Date/Time Associated Diagnosis Comments MRI ABDOMEN PELVIS W WO CONT Timed Study 06/15/2008 3:41 PM WARD SUPERVISOR documented in this encounter Results * MRI ABDOMEN PELVIS W WO CONT (06/15/2008 3:41 PM WARD SUPERVISOR) Anatomical Region Laterality Modality Abdomen Other 06/15/2008 3:41 PM WARD SUPERVISOR Narrative 06/16/2008 8:37 AM WARD SUPERVISOR [facility] [address] [facility] [address] [place], [place] [address] Admit Date: 06/15/2008 GLORIA LINDSAY Sex: F Admit Prov: JULIANNE WESLEY Date: 1955 Primary Care Prov: JULIANNE WESLEY Ro CMRN: [id number] Room: [facility] SSN: [id number] IMAGING SERVICES Ordering Prov: N/A Accession Number: [id number] Interpretation MRI ABDOMEN AND PELVIS WITH AND WITHOUT IV CONTRAST 06/15/2008 Clinical Indication: 52-year-old woman with history of liver and renal lesions. Technique: Multiplanar MR imaging of the abdomen was performed utilizing T1 in and [id number]-uz-[id number], 2D FIESTA, and T2 FSE pulse sequences. Pre and dynamic postcontrast LAVA pulse sequences were obtained. Comparisons: CT 06/02/08 Findings: There are 3 lesions within the liver. The largest lesion is located within the anterior right hepatic lobe and measures approximately 3.3 x 3.9 cm. The next largest lesion is located within the posterior segment of the right hepatic lobe and measures 2 x 2.5 cm. The third lesion is located within the left hepatic lobe and measures 0.8 cm. All of the lesions are of high T2 signal. The largest lesion within the right hepatic lobe demonstrates peripheral nodular enhancement on the earliest phase arterial images. This lesion progressively enhances on more delayed phase images and is most consistent with a hemangioma. The next largest lesion demonstrates peripheral nodular, discontinuous enhancement most compatible with a hemangioma. The third smallest lesion demonstrates enhancement on the most delayed phase images. This lesion is nonspecific and may represent an atypical hemangioma. There is no intrahepatic biliary ductal dilatation. The gallbladder is present. The spleen, pancreas, and adrenal glands are unremarkable. Both kidneys enhance symmetrically and there is no hydronephrosis. There are 3 lesions within the left kidney. The largest lesion is located within the upper pole and measures approximately 10 mm. This was the lesion seen on recent CT scan. This lesion is of high T2 signal and does not enhance postcontrast and is compatible with a simple cyst. The 2 smaller lesions (one within the upper pole and the second within the lower pole) also likely represents cysts. There is a 12 mm T2 hyperintense lesion within the midportion of the right kidney which does not enhance postcontrast, compatible with a cyst. No pathologically enlarged upper abdominal or retroperitoneal lymph nodes are seen. Impression: 1. There are three lesions within the liver. The two largest lesions are most compatible with hemangiomas. The third lesion which measures 0.8 cm has non specific imaging characteristics. In the absence of a history of malignancy, it may represent an atypical hemangioma. Correlation with liver function tests is recommended. Followup MRI in 3-6 months is recommended to document stability. 2. The lesion within the left kidney seen on recent CT scan has imaging characteristics compatible with a simple cyst. There are 2 smaller cysts within the left kidney and one within the right kidney. MRI of the pelvis: Again demonstrated is a 3.9 x 2.3 cm soft tissue lesion within the posterior left hemipelvis that extends through the sciatic notch. This mass appears to extend between the gluteus doroteo and medius muscles on the left side. The mass displaces the sacral nerve roots anteromedially. The mass follows the signal intensity of fat on all pulse sequences and is compatible with a lipoma. Bone marrow signal is within normal limits. There is no evidence of acute fracture. No hip joint effusion is seen. The gluteus medius and minimus tendons are intact bilaterally. The trochanteric bursa is clear. Within the pelvis, the uterus is present. Impression: 13 x 9 x 2.3 cm soft tissue mass within the posterior left lateral aspect of the pelvis in the area of the sciatic notch, most compatible with a lipoma. The sacral nerve roots are displaced anteromedially as a result. . Dictated by: ELENO PERDOMO 06/15/2008 16:42 Electronically signed by: ELENO PERDOMO 06/16/2008 08:36 Transcribed: 06/15/2008 17:06 AMK Procedure Note Eleno Perdomo - 06/16/[address] [place], [place] [address] Admit Date: 06/15/2008 GLORIA LINDSAY Sex: F Admit Prov: JULIANNE WESLEY Date:1955 Primary Care Prov: JULIANNE WESLEY CMRN: [id number] Room: [facility] SSN: [id number] IMAGING SERVICES Ordering Prov: N/A Interpretation MRI ABDOMEN AND PELVIS WITH AND WITHOUT IV CONTRAST 06/15/2008 Clinical Indication: 52-year-old woman with history of liver andrenal lesions. Technique: Multiplanar MR imaging of the abdomen was performedutilizing T1 in and wau-sd-drevc, 2D FIESTA, and T2 FSE pulse sequences. Pre anddynamic postcontrast LAVA pulse sequences were obtained. Comparisons: CT 06/02/08 Findings: There are 3 lesions within the liver. The largest lesionis located within the anterior right hepatic lobe and measuresapproximately 3.3 x 3.9 cm. The next largest lesion is located within theposterior segment of the right hepatic lobe and measures 2 x 2.5 cm. The thirdlesion is located within the left hepatic lobe and measures 0.8 cm. All ofthe lesions are of high T2 signal. The largest lesion within the righthepatic lobe demonstrates peripheral nodular enhancement on the earliestphase arterial images. This lesion progressively enhances on more delayedphase images and is most consistent with a hemangioma. The next largestlesion demonstrates peripheral nodular, discontinuous enhancement mostcompatible with a hemangioma. The third smallest lesion demonstrates enhancementon the most delayed phase images. This lesion is nonspecific and mayrepresent an atypical hemangioma. There is no intrahepatic biliary ductaldilatation. The gallbladder is present. The spleen, pancreas, and adrenal glandsare unremarkable. Both kidneys enhance symmetrically and there is no hydronephrosis.There are 3 lesions within the left kidney. The largest lesion is locatedwithin the upper pole and measures approximately 10 mm. This was the lesionseen on recent CT scan. This lesion is of high T2 signal and does notenhance postcontrast and is compatible with a simple cyst. The 2 smallerlesions (one within the upper pole and the second within the lower pole)also likely represents cysts. There is a 12 mm T2 hyperintense lesionwithin the midportion of the right kidney which does not enhance postcontrast, compatible with a cyst. No pathologically enlarged upper abdominalor retroperitoneal lymph nodes are seen. Impression: 1. There are three lesions within the liver. The two largest lesionsare most compatible with hemangiomas. The third lesion which measures 0.8cm has non specific imaging characteristics. In the absence of a historyof malignancy, it may represent an atypical hemangioma. Correlation withliver function tests is recommended. Followup MRI in 3-6 months isrecommended to document stability. 2. The lesion within the left kidney seen on recent CT scan hasimaging characteristics compatible with a simple cyst. There are 2 smallercysts within the left kidney and one within the right kidney. MRI of the pelvis: Again demonstrated is a 3.9 x 2.3 cm soft tissuelesion within the posterior left hemipelvis that extends through thesciatic notch. This mass appears to extend between the gluteus doroteo andmedius muscles on the left side. The mass displaces the sacral nerve roots anteromedially. The mass follows the signal intensity of fat on allpulse sequences and is compatible with a lipoma. Bone marrow signal is within normal limits. There is no evidence ofacute fracture. No hip joint effusion is seen. The gluteus medius andminimus tendons are intact bilaterally. The trochanteric bursa is clear. Within the pelvis, the uterus is present. Impression: 13 x 9 x 2.3 cm soft tissue mass within the posterior left lateralaspect of the pelvis in the area of the sciatic notch, most compatible witha lipoma. The sacral nerve roots are displaced anteromedially as aresult. . Dictated by: ELENO PERDOMO 06/15/2008 16:42 Electronically signed by: ELENO PERDOMO 06/16/2008 08:36 Transcribed: 06/15/2008 17:06 AMK Julianne Wesley MD MR ORDERABLES Final Result documented in this encounter Visit Diagnoses Not on filedocumented in this encounter Care Teams Employment Advisor Relationship Specialty Start Date End Date Ivanna Wagner MD [address] [place] [address] PCP - General Family Practice 11/17/23 documented as of this encounter
--- OUTSIDE RECORDS SUMMARY | 2025-06-29 08:33 | XMS_ITS | Encounter Summary ---
Author Organization [facility] Address [address] [place] [address] Care Team Providers Care Stripper And Taper Name Role Phone Ivanna Wagner MD Primary Care Provider [phone] Encounter Details Date Type Department Care Team (Latest Contact Info) Description 05/26/2003 Outpatient Historical HIS IMG-[facility] [place] [address] [place] [address] SCREENING MAMM-MAILG NEOPL-OTHER (Primary Dx) Social History Tobacco Use Types Packs/Day Years Used Date Smoking Tobacco: Never Assessed Comments Unknown Sex and Gender Information Value Date Recorded Sex Assigned at Not on file Legal Sex Female 5:26 AM ASSISTANT SALES DIRECTOR Gender Identity Not on file Sexual Orientation Not on file documented as of this encounter Plan of Treatment Upcoming Encounters Date Type Department Care Team (Late st Contact Info) Description 09/19/2025 10:15 AM CDT Office Visit [facility] Medical [place] [address] [facility] [address] [place] [address] Vanessa Albright MD [address] [facility] [address] [place] [address] documented as of this encounter Visit Diagnoses Diagnosis Other screening mammogram- Primary documented in this encounter Care Teams Stripper And Taper Relationship Specialty Start Date End Date Ivanna Wagner MD [address] [place] [phone] PCP - General Family Practice 11/17/23 documented as of this encounter
--- OUTSIDE RECORDS SUMMARY | 2025-06-29 08:33 | XMS_ITS | Encounter Summary ---
Author Organization [facility] Address [address] [place] [address] Care Team Providers Care Concrete Vault Maker Name Role Phone Ivanna Wagner MD Primary Care Provider [phone] Encounter Details Date Type Department Care Team (Latest Contact Info) Description 11/08/1999 Outpatient Historical HIS [facility] Ady Goodson MD [address] [facility] [address] [place] [address] Other screening mammogram (Primary Dx) Social History Tobacco Use Types Packs/Day Years Used Date Smoking Tobacco: Never Assessed Comments Unknown Sex and Gender Information Value Date Recorded Sex Assigned at Not on file Legal Sex Female 5:26 AM SHRINK PIT SUPERVISOR Gender Identity Not on file Sexual Orientation Not on file documented as of this encounter Plan of Treatment Upcoming Encounters Date Type Department Care Team (Late st Contact Info) Description 09/19/2025 10:15 AM CDT Office Visit [facility] [place] [address] [place] [address] [place] [address] Vanessa Albright MD [address] [place] [address] [place] [address] documented as of this encounter Visit Diagnoses Diagnosis Other screening mammogram- Primary documented in this encounter Care Teams Concrete Vault Maker Relationship Specialty Start Date End Date Ivanna Wagner MD [address] [place] [address] PCP - General Family Practice 11/17/23 documented as of this encounter
--- OUTSIDE RECORDS SUMMARY | 2025-06-29 08:34 | XMS_ITS | Encounter Summary ---
Author Organization [facility] Address [address] [place] [address] Care Team Providers Care Absorption Plant Operator Helper Name Role Phone Ivanan Wagner MD Primary Care Provider [phone] Encounter Details Date Type Department Care Team (Latest Contact Info) Description 04/17/2008 Outpatient Historical [facility] Sahara Silva MD [address] [place] [address] Brachial Neuritis or Radiculitis NOS Social History Tobacco Use Types Packs/Day Years Used Date Smoking Tobacco: Never Assessed Comments Unknown Sex and Gender Information Value Date Recorded Sex Assigned at Not on file Legal Sex Female 5:26 AM CNC LATHE MACHINE OPERATOR Gender Identity Not on file Sexual Orientation Not on file documented as of this encounter Plan of Treatment Upcoming Encounters Date Type Department Care Team (Late st Contact Info) Description 09/19/2025 10:15 AM CDT Office Visit [facility] [address] [place] [address] [place] [address] Vanessa Albright MD [address] [place] [address] [place] [address] documented as of this encounter Visit Diagnoses Diagnosis Brachial neuritis or radiculitis NOS Brachial neuritis or radiculitis nos documented in this encounter Care Teams Absorption Plant Operator Helper Relationship Specialty Start Date End Date Ivanna Wagner MD [address] [place] [phone] PCP - General Family Practice 11/17/23 documented as of this encounter
--- OUTSIDE RECORDS SUMMARY | 2025-06-29 08:34 | XMS_ITS | Encounter Summary ---
Author Organization [facility] Address [address] [place] [address] Care Team Providers Care Surveillance Officer Name Role Phone Ivanna Wagner MD Primary Care Provider Encounter Details Date Type Department Care Team (Late st Contact Info) Description 09/08/2007 Outpatient Historical [facility] [address] [phone] Ady Wesley MD [address] [address] Social History Tobacco Use Types Packs/Day Years Used Date Smoking Tobacco: Never Assessed Comments Unknown Sex and Gender Information Value Date Recorded Sex Assigned at Not on file Legal Sex Female 5:26 AM CRANE MANAGER Gender Identity Not on file Sexual Orientation Not on file documented as of this encounter Plan of Treatment Upcoming Encounters Date Type Department Care Team (Late st Contact Info) Description 09/19/2025 10:15 AM CDT Office Visit [facility] Medical [place] [address] [place] [id number] [place] [address] Vanessa Albright MD [address] [place] [id number] [place] [address] documented as of this encounter Visit Diagnoses Not on filedocumented in this encounter Care Teams Surveillance Officer Relationship Specialty Start Date End Date Ivanna Wagner MD [address] [place] [address] PCP - General Family Practice 11/17/23 documented as of this encounter
--- OUTSIDE RECORDS SUMMARY | 2025-06-29 08:34 | XMS_ITS | Clinical Summary ---
Author Organization 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 Immunizations Immunization Administration Dates Next Due Influenza, Quad, Adjuvantate d, Intramuscular 04/21/2022,04/18/2021 Influenza, Quadrivalent, Spl it, Preservative Free, Intramuscular 04/26/2020 Influenza, Trivalent, IM (MDV) 04/12/2021,2016,05/13/2013 Pneumococcal Polysaccharide PPV23 11/04/2021 Tdap 11/04/2021,04/05/2012 ZOSTER LIVE 01/04/2016 ZOSTER Recombinant 04/26/2020,01/30/2020 Surgical History Surgery Date Site/Laterality Comments [place] UNLISTED PROCEDURE BREAST Breast Surgery - (Added by TW Conv) LIPOMA RESECTION Left LEFT BUTTOCK EYE SURGERY CATARACT EYE SURGERY Family History Medical History Relation Name Comments Cancer Brother Non-Hodgkin's Lymphoma Father Cancer Other Cancer - (Added by TW Conv) Relation Name Status Comments Brother Father Other Social History Tobacco Use Types Packs/Day Years Used Date Smoking Tobacco: Never Smokeless Tobacco: Never AUDIT-C Answer Date Recorded Q1: How often do you have a drink containing alc ohol? Monthly or less 01/19/2023 Average Number of Drinks Not on file 023 Q3: How often do you have si x or more drinks on one occasion? Less than monthly 01/19/2023 Comments Unknown Sex and Gender Information Value Date Recorded Sex Assigned at Not on file Legal Sex Female 7:06 AM PIPING BLOCKER Gender Identity Not on file Sexual Orientation Not on file Plan of Treatment Health Maintenance Due Date Last Done Comments Breast Cancer Screening-Mammogram 1955 Colon Cancer Screening-Colonoscopy 1955 Depression Screening 1955 Fall Risk Assessment 1955 Hepatitis C Screening 1955 Osteoporosis Screening-Bone Density Scan 1955 Hepatitis B Screening 1973 Well Visit 65+ 2020 Pneumococcal vaccine 65+ (2 of 2 - PCV) 11/04/2022 11/04/2021 Covid-19 Vaccine (3 - 2024-2 6 season) 2025 11/15/2020, 10/25/2020 Influenza Vaccine (#1) 2025 , 04/18/2021, 04/12/2021, Additional history exists DTaP/Tdap/Td Vaccine (3 - Td or Tdap) 11/05/2031 11/04/2021, 04/05/2012 Zoster Vaccine Completed 04/26/2020, 01/11, 01/04/2016 Insurance [employer] [address] MEDICARE ADVANTAGE Care Teams Oil Field Caser Relationship Specialty Start Date End Date Ivanna Wagner MD PCP - General Family Medicine 12/12/22
[2025-06-29 10:33] LABS: CRP < 0.5 mg/dL (<1.0)
== END 2025-06-29 08:22 | disposition home or self-care (01) ==
PROVIDERS: PCP Family Medicine
DX: R76.89 Other specified abnormal immunological findings in serum (principal)
CPT/HCPCS: 36415; 85652; 86140